=== PATIENT | female | born 1960 | race African-American/Black ===

== ENCOUNTER 2021-03-13 09:17 | Outpatient (CLI) | payer OTHER, SELFPAY ==
--- NOTE | ~2021-03-13 | CT_ITS ---
EXAMINATION: CT lung screening DATE: 03/13/2021 09:30 INDICATION: Z72.0 - Tobacco use TECHNIQUE: Computed tomography (CT) of the chest was performed without intravenous contrast. Addition al 3D reconstructions utilizing coronal maximum intensity projection (MIP) were performed. Automated exposure control and iterative reconstruction technique were employed. The dose-length product was 10 3.26 mGy-cm. COMPARISON: 10/08/2013 FINDINGS: Minimal emphysema at the apices of lungs. Cluster of small calcified nodules in the left upper lobe a long with calcified left hilar lymph nodes consistent with old granulomatous disease. No other suspic ious pulmonary nodules, pneumonia, pulmonary edema or pleural effusion. Heart size is normal. No jay cardial effusion. Aortic valve calcification. Thoracic aorta is normal in caliber. No pathologically enlarged thoracic lymphadenopathy. Visualized upper abdomen is unremarkable. Moderate lower cervical and mild thoracic spondylosis. IMPRESSION: 1. Lung-RADS category 1: Negative. Continue annual screening with noncontrast low-dose chest CT in 12 months. Reviewed, dictated and finalized at location B. T CARD CLERK IMPRESSION: 1. Lung-RADS category 1: Negative. Continue annual screening with noncontrast l ow-dose chest CT in 12 months.
== END 2021-03-13 09:18 | disposition home or self-care (01) ==
LOC: ANHIMG 09:19
PROVIDERS: PCP Internal Medicine; Visit Provider Nurse Practitioner
DX: Z12.2 Encounter for screening for malignant neoplasm of respiratory organs (principal); Z87.891 Personal history of nicotine dependence
CPT/HCPCS: 71271

== ENCOUNTER 2022-01-23 09:46 | Outpatient (CLI) | payer OTHER, SELFPAY ==
--- NOTE | ~2022-01-23 | DEXA_ITS ---
Bone Density Report Name: HANNAH DUENAS Age: 61 Sex: Female Ethnicity: White Date of : 1960 Indication: postmenopausal; screening for osteoporosis; height loss; rheumatoid arthritis; Referring Provider: ESTELA, YAIR Jordan Study: Bone densitometry was performed. Exam Date: January 23, 2022 Accession number: [id number] Bone Density: Region BMD T-score Z-score Classification AP Spine(L1-L4) 1.114 0.6 2.2 Normal Femoral Neck (Left) 0.912 0.6 2.0 Normal Total Hip (Left) 0.999 0.5 1.5 Normal Femoral Neck (Right) 0.878 0.3 1.6 Normal Total Hip (Right) 1.048 0.9 1.9 Normal Total Hip Mean 1.024 0.7 1.7 Normal World Health Organization criteria for BMD impression classify patients as: Normal (T-score at or above -1.0), Osteopenia (T-score between -1.0 and -2.5), or Osteoporosis (T-score at or below -2.5). 10-year Fracture Risk: FRAX not reported because: All T-scores for Spine Total, Hip Total, Femoral Neck at or above -1.0 Clinical Information Provided by Patient: Smokes Has rheumatoid arthritis Has used the following medications: Vitamin D, Calcium Patient maximum height was 65 Menopause Age: 44 No regular weight bearing exercise Drinks caffeinated beverages Onset of menses at age 13 Number of children 3 Impression: The patient has normal bone mass. The patient has risk factors, including: smoking. Discussion: BONE DENSITY IS ABOVE THE MINIMUM DESIRABLE LEVEL AT ALL SKELETAL SITES TESTED. This patient?s bone mineral density is above the minimum desirable level (T-score -1.0 or better) at all sites measured. The patient should follow a healthful lifestyle (good nutrition with adequate calcium and vitamin D, and appropriate weight-bearing exercise). Follow-Up: Consider repeating this study in 5 years or sooner if there is some new clinical indication. Reported by: TOMMY on 01/23/2022 10:07:00 AM. Reviewed, dictated and finalized at location AJob HOLT
--- NOTE | ~2022-01-23 | MM_ITS ---
EXAMINATION: MM screening dena BI w madisyn HISTORY: Screening TECHNIQUE: Craniocaudal and mediolateral oblique 3-D tomosynthesis images were obtained and synthetic 2-D images were generated. CAD analysis was submitted and interpreted. COMPARISON: Comparison to multiple prior studies sequentially, with oldest reviewed study dated 03/10. BREAST PARENCHYMAL COMPOSITION: Breast composed of scattered areas of fibroglandular density FINDINGS: There is no evidence of suspicious mass, calcification, or architectural distortion to sugg est malignancy in either breast. There has been no suspicious interval change. IMPRESSION: 1. No mammographic evidence of malignancy. 2. Recommend routine screening mammography in one year. BI-RADS Category 1: Negative Reviewed, dictated and finalized at location A.
== END 2022-01-23 09:47 | disposition home or self-care (01) ==
PROVIDERS: PCP Internal Medicine; Visit Provider Nurse Practitioner Obstetrics & Gynecology
DX: Z12.31 Encounter for screening mammogram for malignant neoplasm of breast (principal); Z78.0 Asymptomatic menopausal state
CPT/HCPCS: 77063; 77067; 77080

== ENCOUNTER 2022-09-27 12:31 | Outpatient (CLI) | payer OTHER, SELFPAY ==
--- NOTE | ~2022-09-27 | CT_ITS ---
CT Scan of the Chest without Contrast: Clinical Indication: Lung cancer screening, personal history of nicotine dependence Technique: Contiguous sections were acquired throughout the chest without intravenous contrast. Dose reduction technique was used on this scan by utilizing automated exposure control and iterative recon struction technique. The dose-length product (DLP) was 131.13 mGy-cm. COMPARISON: 03/13/2021 Findings: There is no evidence of any significant mediastinal, hilar or axillary lymphadenopathy. The mediastin al soft tissues appear normal. There is no evidence of pleural or pericardial effusion. The lungs are clear. No pulmonary nodules or infiltrates are noted. Images through the upper abdomen reveal no abnormalities. Impression: Lung RADS 1: Negative. 12 month follow-up screening CT advised. Reviewed, dictated and finalized at location . Impression: Lung RADS 1: Negative. 12 month follow-up screening CT advised.
[2022-09-27 14:10] LABS: Basophils Absolute Auto 0.1 K/mm3 (0.0-0.1); Basophils Percent Auto 0.4 % (0.2-1.2); Eosinophils Absolute Auto 0.4 K/mm3 (0-0.3); Eosinophils Percent Auto 3.1 % (0-4.4); Hematocrit 46.6 % (37.0-47.0); Hemoglobin 15.7 g/dL (12.0-15.0); Immature Granulocyte Absolute 0.04 K/mm3 (0.00-0.031); Immature Granulocyte Percent A 0.3 % (0-0.5); Lymphocytes Absolute Auto 3.35 K/mm3 (0.9-3.2); Lymphocytes Percent Auto 28.7 % (18.3-44.2); Mean Corpuscular HGB Conc 33.7 g/dl (32-36); Mean Corpuscular Hemoglobin 29.8 pg (26-34); Mean Corpuscular Volume 88.4 fl (80-100); Mean Platelet Volume 9.5 fl (7.4-10.4); Monocytes Absolute Auto 0.9 K/mm3 (0.1-0.6); Monocytes Percent Auto 7.4 % (2.6-8.5); Neutrophils Percent Auto 60.1 % (45.5-73.1); Platelet Count Result 220 k/mm3 (150-375); Red Blood Count 5.27 M/mm3 (4.2-5.4); Red Cell Distribution Width 14.4 % (11.5-14.5); White Blood Count 11.7 K/mm3 (4.5-10.0)
[2022-09-27 14:37] LABS: Parathyroid Intact 73.3 pg/mL (7.5-53.5)
== END 2022-09-27 12:32 | disposition home or self-care (01) ==
LOC: ANHIMG 12:32
PROVIDERS: PCP Internal Medicine; Visit Provider Nurse Practitioner
DX: Z12.2 Encounter for screening for malignant neoplasm of respiratory organs (principal); D72.829 Elevated white blood cell count, unspecified; E83.52 Hypercalcemia; F17.210 Nicotine dependence, cigarettes, uncomplicated
CPT/HCPCS: 36415; 71271; 83970; 85025; 93306

== ENCOUNTER 2022-09-27 12:33 | Outpatient (CLI) | payer OTHER, SELFPAY ==
--- NOTE | 2022-09-27 | ECHO_ITS ---
Patient Info Name: Kimberley Marie Age: 62 years : 1960 Gender: Female Ht: 65 in Wt: 172 lbs BSA: 1.91 m2 HR: 63 bpm BP: 135 / 65 mmHg Technical Quality: Good Exam Date: 09/27/2022 1:06 PM Exam Location: [facility] Patient Status: Outpatient Admit Date: 09/27/2022 Staff Ordering Physician: Rebecca Blount NP Frame Nailer: Charmaine Danielson RDCS Attending Provider: Rebecca Blount NP Referring Physician: Mine LEIVA; Exam Type: CA echo doppler color flow Study Info Indications R01.1 - Cardiac murmur, unspecified Complete two-dimensional, color flow and Doppler transthoracic echocardiogram is performed. Summary 1. Complete two-dimensional, color flow and Doppler transthoracic echocardiogram is performed. 2. Left ventricular chamber dimension is normal. 3. Left ventricular systolic function is normal, estimated at 60-65%. 4. The left ventricular diastolic function is grade I diastolic dysfunction. 5. E/e' 11 is mildly elevated. 6. Global longitudinal strain is normal at -17.5%. 7. Left atrial chamber dimension is moderately enlarged. 8. There is mild aortic valve sclerosis. 9. There is moderate aortic valve regurgitation. 10. There is trace mitral valve regurgitation. 11. There is trace tricuspid valve regurgitation. 12. No pulmonary hypertension, estimated pulmonary arterial systolic pressure is 27 mmHg. 13. There is trace pulmonic regurgitation. Left Ventricle E/e' 11 is mildly elevated. Global longitudinal strain is normal at -17.5%. Left ventricular chamber dimension is normal. Left ventricular systolic function is normal, estimated at 60-65%. The left ventricular diastolic function is grade I diastolic dysfunction. Right Ventricle Right ventricular systolic function is normal and with normal TAPSE 2.8 cm. Right ventricular chamber dimension is normal. Left Atria Left atrial chamber dimension is moderately enlarged. Right Atria Right atrial chamber dimension is normal. Aortic Valve The aortic valve is trileaflet. There is mild aortic valve sclerosis. There is no aortic valve stenosis. There is moderate aortic valve regurgitation. Pulmonic Valve There is trace pulmonic regurgitation. Mitral Valve There is no mitral valve stenosis. There is trace mitral valve regurgitation. Tricuspid Valve There is trace tricuspid valve regurgitation. No pulmonary hypertension, estimated pulmonary arterial systolic pressure is 27 mmHg. Pericardium/Pleural There is no pericardial effusion. Inferior Vena Cava Normal inferior vena cava with >50% collapse upon inspiration consistent with normal right atrial pressure, 5 mmHg. Aorta The aortic root size at the sinus of Valsalva is normal. Left Ventricular Outflow Tract Name Value Normal LVOT 2D LVOT Diameter 2.0 cm LVOT Doppler LVOT Peak Gradient 5 mmHg LVOT Mean Gradient 3 mmHg LVOT VTI 31 cm LVOT VTI/AV VTI Ratio 0.6 LVOT Stroke Volume 92 ml LVOT CO 5.1 l/min LVOT CI 2.6 l/min/m2 Pulmonic Valve
== END 2022-09-27 12:34 | disposition home or self-care (01) ==
LOC: ANHCARD 12:34
PROVIDERS: PCP Internal Medicine; Visit Provider Nurse Practitioner
DX: R01.1 Cardiac murmur, unspecified (principal); I35.1 Nonrheumatic aortic (valve) insufficiency
CPT/HCPCS: 93306

== ENCOUNTER 2023-05-16 09:55 | Outpatient (CLI) | payer OTHER, SELFPAY ==
--- NOTE | 2023-05-16 10:01 | EST_ITS ---
Patient Info Name: Kimberley Marie Age: 62 years : 1960 Gender: Female Ht: 65 in Wt: 165 lbs BSA: 1.87 m2 HR: 56 bpm BP: 111 / 63 mmHg Heart Rhythm: Sinus Rhythm Exam Date: 05/16/2023 10:13 AM Exam Location: [facility] Patient Status: Outpatient Admit Date: 05/16/2023 Staff Ordering Physician: Rebecca Blount NP Attending Provider: Rebecca Blount NP Exercise Technologist: Cyn Liao CT Exercise Physician: Rio Silvestre DO Exam Type: CA stress test treadmill Study Info Indications R06.09 - Other forms of dyspnea A treadmill exercise stress test was performed. Summary 1. 1. Negative Francis exercise stress test for ischemic ST changes by ECG criteria. 2. 2. Reduced functional capacity, achieving 7 METs of workload. 3. 3. Hypertensive response to exercise. 4. 4. Appropriate HR response to exercise. 5. 5. Appropriate HR recovery at 1 minute post exercise. 6. 6. No imaging with stress testing. 7. 7. Patient informed of the above results. Protocol: Francis Stress ECG Details Stage: REST Duration (min): 1 min : 14 sec Speed (mph): 0.0 Grade (%): 0 HR (bpm): 58 SBP (mmHg): 111 DBP (mmHg): 63 METS: --- Stage: REST Duration (min): 4 min : 52 sec Speed (mph): 0.0 Grade (%): 0 HR (bpm): 59 SBP (mmHg): 111 DBP (mmHg): 63 METS: --- Stage: STAGE 1 Duration (min): 1 min : 0 sec Speed (mph): 1.7 Grade (%): 10 HR (bpm): 95 SBP (mmHg): 111 DBP (mmHg): 63 METS: --- Stage: STAGE 1 Duration (min): 2 min : 0 sec Speed (mph): 1.7 Grade (%): 10 HR (bpm): 104 SBP (mmHg): 111 DBP (mmHg): 63 METS: --- Stage: STAGE 1 Duration (min): 3 min : 0 sec Speed (mph): 1.7 Grade (%): 10 HR (bpm): 105 SBP (mmHg): 198 DBP (mmHg): 89 METS: --- Stage: STAGE 2 Duration (min): 1 min : 0 sec Speed (mph): 2.5 Grade (%): 12 HR (bpm): 120 SBP (mmHg): 205 DBP (mmHg): 109 METS: --- Stage: STAGE 2 Duration (min): 2 min : 0 sec Speed (mph): 2.5 Grade (%): 12 HR (bpm): 132 SBP (mmHg): 213 DBP (mmHg): 108 METS: --- Stage: STAGE 2 Duration (min): 2 min : 3 sec Speed (mph): 2.5 Grade (%): 12 HR (bpm): 133 SBP (mmHg): 213 DBP (mmHg): 108 METS: --- Stage: RECOVERY Duration (min): 0 min : 56 sec Speed (mph): 0.0 Grade (%): 0 HR (bpm): 107 SBP (mmHg): 213 DBP (mmHg): 108 METS: --- Stage: RECOVERY Duration (min): 1 min : 56 sec Speed (mph): 0.0 Grade (%): 0 HR (bpm): 91 SBP (mmHg): 213 DBP (mmHg): 108 METS: --- Stage: RECOVERY Duration (min): 2 min : 56 sec Speed (mph): 0.0 Grade (%): 0 HR (bpm): 82 SBP (mmHg): 144 DBP (mmHg): 84 METS: --- Stage: RECOVERY Duration (min): 3 min : 12 sec Speed (mph): 0.0 Grade (%): 0 HR (bpm): 83 SBP (mmHg): 144 DBP (mmHg): 84 METS: --- Rest HR: 59 bpm Peak HR: 132 bpm Rest Sys BP: 111 mmHg Peak Sys BP: 213 mmHg Max Pred HR: 157 bpm % Max Pred HR: 84 %
== END 2023-05-16 09:56 | disposition home or self-care (01) ==
LOC: ANHCARD 09:55
PROVIDERS: PCP Internal Medicine; Visit Provider Nurse Practitioner
DX: R07.9 Chest pain, unspecified (principal); R06.00 Dyspnea, unspecified
CPT/HCPCS: 93017

== ENCOUNTER 2023-05-29 09:21 | Outpatient (CLI) | payer OTHER, SELFPAY ==
--- NOTE | 2023-05-29 13:59 | WPDPFTINT ---
PFT Procedure Performed PFT Procedure Performed Spirometry with Pre/Post Bronchodilator Plethysmography (Lung Vol) Diffusing Cap (DLCO) Flow Vol Loop PFT Interpretation Lung volumes were measured with the body plethysmography method. Lung volumes are unremarkable. Spirometry showed normal expiratory flow rates and a normal FEV1 to FVC ratio of 80%. Following administration of a bronchodilator there was no significant increased expiratory flow rates. Lung diffusion capacity is mildly reduced at 65% predicted. The flow volume loop is unremarkable. Impression: Spirometry, lung volumes within the normal range. Mild reduction in lung diffusion capacity
== END 2023-05-29 09:22 | disposition home or self-care (01) ==
LOC: ANHPFT 09:22
PROVIDERS: PCP Internal Medicine; Visit Provider Nurse Practitioner
DX: R06.00 Dyspnea, unspecified (principal)
CPT/HCPCS: 94060; 94726; 94729

== ENCOUNTER 2023-12-05 10:11 | Outpatient (CLI) | payer OTHER, SELFPAY ==
[2023-12-05 12:22] LABS: Basophils Absolute Auto 0.1 K/mm3 (0.0-0.1); Basophils Percent Auto 0.6 % (0.2-1.2); Eosinophils Absolute Auto 0.2 K/mm3 (0-0.3); Eosinophils Percent Auto 1.8 % (0-4.4); Hemoglobin 15.9 g/dL (12.0-15.0); Immature Granulocyte Absolute 0.04 K/mm3 (0.00-0.031); Immature Granulocyte Percent A 0.4 % (0-0.5); Lymphocytes Absolute Auto 3.05 K/mm3 (0.9-3.2); Mean Corpuscular HGB Conc 32.4 g/dl (32-36); Mean Corpuscular Hemoglobin 29.6 pg (26-34); Mean Corpuscular Volume 91.2 fl (80-100); Mean Platelet Volume 10.4 fl (7.4-10.4); Monocytes Absolute Auto 0.9 K/mm3 (0.1-0.6); Monocytes Percent Auto 8.2 % (2.6-8.5); Neutrophils Absolute Auto 6.3 K/mm3 (1.3-6.7); Platelet Count Result 242 k/mm3 (150-375); Red Blood Count 5.37 M/mm3 (4.2-5.4); Red Cell Distribution Width 14.9 % (11.5-14.5); White Blood Count 10.5 K/mm3 (4.5-10.0)
[2023-12-05 12:29] LABS: Add Urine Microscopic? YES; Appearance Urine Clear (Clear); Bacteria Urine None Seen /hpf; Bilirubin Urine Negative (Negative); Blood Urine Trace (Negative); Color Urine Yellow (Yellow); Glucose Urine UA Negative (Negative); Ketones Urine Negative (Negative); Leukocyte Esterase Ur Negative LEU/UL (Negative); Nitrate Urine Negative (Negative); Non Pathogenic Casts 0-2; Protein Urine Negative (Negative); RBC Urine 0-2 /hpf (0-2); Specific Grav Ur 1.013 (1.001-1.035); Squamous Epithelial Cell Urine None Seen /hpf (Few); Urobilinogen Urine 0.2 mg/dL (<2.0); WBC Urine 0-5 /hpf (0-3)
[2023-12-05 12:44] LABS: Alanine Aminotransferase 18 U/L (6-35); Albumin Level 4.7 g/dL (3.5-5.1); Alkaline Phosphatase 68 U/L (38-126); Anion Gap 10 mmol/L (4-12); Aspartate Amino Transferase 36 U/L (14-36); Bilirubin,Total 0.4 mg/dL (0.2-1.3); Blood Urea Nitrogen 17 mg/dL (7-17); Calcium 10.2 mg/dL (8.4-10.2); Carbon Dioxide 26 mmol/L (22-30); Chloride 105 mmol/L (98-107); Cholesterol 173 mg/dL (0-200); Estimated Glomerular Filt Rate > 60; Glucose 99 mg/dL (65-110); HDL Direct 58 mg/dL; Potassium 3.8 mmol/L (3.4-5.0); Sodium 141 mmol/L (137-145); Triglycerides 197 mg/dL (<150)
[2023-12-05 12:54] LABS: Parathyroid Intact 46.4 pg/mL (14.5-75.2)
[2023-12-05 12:55] LABS: LDL Cholesterol Direct 88 mg/dL
[2023-12-06 16:03] LABS: Ionized Calcium 5.5 mg/dL (4.7-5.5)
[2023-12-14 15:33] LABS: Apolipoprotein B 95 mg/dL
== END 2023-12-05 10:12 | disposition home or self-care (01) ==
LOC: ANHGOSHLAB 10:12
PROVIDERS: PCP Internal Medicine; Visit Provider Nurse Practitioner
DX: E83.52 Hypercalcemia (principal); R35.0 Frequency of micturition; I10 Essential (primary) hypertension
CPT/HCPCS: 36415; 80053; 80061; 81001; 82172; 82330; 83970; 84443; 85025

== ENCOUNTER 2025-03-26 08:26 | Outpatient (CLI) | payer MEDICARE, MEDICAID, SELFPAY ==
--- OUTSIDE RECORDS SUMMARY | 2025-03-26 08:36 | XMS_ITS | Clinical Summary ---
Author Organization [facility] Address [address] [place] [id number] Care Team Providers Care Employment Officer Name Role Phone Unknown, Notinfile Primary Care Provider Unavail able Allergies No known active allergies Medications albuterol HFA (PROVENTIL HFA,VENTOLIN HFA,PROAIR HFA) 90 mcg/actuation inhaler Inhale 2 puffs every 6 (six) hours as needed for wheezing Active fluticasone propionate (FLONASE) 50 mcg/actuation nasal spray Administer 2 sprays into each nostril daily Active lisinopril-hydr oCHLOROthiazide (ZESTORETIC) 20-12.5 mg per tabletIndicatio ns:hypertension Take 1 tablet by mouth daily Active Active Problems Problem Noted Date Diagnosed Date Primary hypertension 01/11/2021 Tobacco dependence due to cigarettes 01/11/2021 Other emphysema 01/11/2021 Rhabdomyolysis 01/10/2021 Surgical History Surgery Date Site/Laterality Comments TUBAL LIGATION 04/08/1980 - 04/07/1981 Bilateral VAGINAL DELIVERY x 3 Medical History Medical History Date Comments HTN (hypertension) COPD (chronic obstructive pulmonary disease) Tobacco dependence due to cigarettes 01/11/2021 Family History Medical History Relation Name Comments Diabetes Father Hypertension Father Diabetes Mother Hypertension Mother Relation Name Status Comments Father (Age 60s) Mother (Age 58) Social History Tobacco Use Types Packs/Day Years Used Date Smoking Tobacco: Every Day Cigarettes 0.5 47 Started: 1979 Smokeless Tobacco: Never Tobacco Cessation:Counseling Given: Yes Humiliation, Afraid, Rape, and Kick questionnair e Answer Date Recorded Within the last year, have y ou been afraid of your partner or ex-partner? No 01/11/2021 Within the last year, have y ou been humiliated or emotionally abused in other ways by your partner or ex-partner? No Within the last year, have y ou been kicked, hit, slapped, or otherwise physically hurt by your partner or ex-partner? No 01/11/2021 Within the last year, have y ou been raped or forced to have any kind of sexual activity by your partner or ex-partner? No 01/11/2021 Social Connection and Isolation Panel Answer Date Recorded In a typical week, how many times do you talk on the phone with family, friends, or neighbors? More than three times a week 01/11/2021 How often do you get togethe r with friends or relatives? Twice a week 01/11/2021 How often do you attend chur or sabianist services? More than 4 times per year 01/11/2021 Do you belong to any clubs o r organizations such as cheondoism groups, unions, fraternal or athletic groups, or school groups? Yes 01/11/2021 How often do you attend meet ings of the clubs or organizations you belong to? More than 4 times per year 01/11/2021 Are you , , di vorced, , never , or living with a partner? 01/11/2021 AUDIT-C Answer Date Recorded Q1: How often do you have a drink containing alc ohol? 2-4 times a month 01/11/2021 Q2: How many drinks containi ng alcohol do you have on a typical day when you are drinking? 3 or 4 01/11/2021 Q3: How often do you have si x or more drinks on one occasion? Less than monthly 01/11/2021 [facility] - Occupational Stress Questionnaire Answer Date Recorded Do you feel stress - tense, restless, nervous, or anxious, or unable to sleep at night because your mind is troubled all the time - these days? Not at all 01/11/2021 Hunger Vital Sign Answer Date Recorded Within the past 12 months, y ou worried that your food would run out before you got the money to buy more. Never true 01/12/20 21 Within the past 12 months, t he food you bought just didn't last and you didn't have money to get more. Never true 01/11/2021 Housing Stability Vital Sign Answer Paco e Recorded In the last 12 months, was t here a time when you were not able to pay the mortgage or rent on time? No 01/11/2021 In the last 12 months, how many places have you lived? 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 Not on file Not on file Last Filed Vital Signs Vital Sign Reading Time Taken Comments Blood Pressure 164/75 01/11/2021 7:32 AM CDT Pulse 76 01/11/2021 7:32 AM CDT Temperature 36.9 C (98.4 F) 01/11/2021 7:32 AM CDT Respiratory Rate 21 01/11/2021 7:32 AM CDT Oxygen Saturation 96% 01/11/2021 7:32 AM CDT Inhaled Oxygen Concentration - - Weight 79 kg (174 lb 1.6 oz) 01/11/2021 5:19 AM CDT Height 162.6 cm (5' 4) 01/10/2021 9:47 PM CDT Body Mass Index 29.88 01/10/2021 9:47 PM CDT Plan of Treatment Not on file Insurance Advance Directives For more information, please contact: [phone] * Full Code (Latest Code Status on File) Date Activated Date Inactivated Comments 01/11/2021 1:37 AM 01/11/2021 4:08 PM Care Teams Employment Officer Relationship Specialty Start Date End Date Unknown, Notinfile PCP - General 01/10/21
--- OUTSIDE RECORDS SUMMARY | 2025-03-26 08:36 | XMS_ITS | Clinical Summary ---
Author Organization [facility] Address [address] [place] [address] Care Team Providers Care Bessemer Bottom Maker Name Role Phone Cordell Cuevas DO Primary Care Provider [phone] Source Comments [facility],non-owned Affiliates and Associated Physician Practices is amultiple site organization consisting of ambulatory clinics and hospital sitesin [place], [place], [place] and [place]. This disclosure is being madepursuant to the Care Everywhere program and may not contain all information available regarding this patient. Last updated 17.[facility] Allergies No known active allergies Medications * Be aware that medications may not be up to date on this document. Alwaysverify current medications with the patient. albuterol HFA (PROVENTIL; VENTOLIN; PROAIR) 108 (90 Base) MCG/ACT inhaler ProAir HFA 90 mcg/actuation aerosol inhaler Active lisinopril-hydr oCHLOROthiazide (PRINZIDE; ZESTORETIC) 20-12.5 MG tablet lisinopril 20 mg-hydrochloroth iazide 12.5 mg tablet Active fluticasone propionate (FLONASE) 50 MCG/ACT nasal spray fluticasone propionate 50 mcg/actuation nasal spray,suspension Active Active Problems Problem Noted Date Diagnosed Date Anti-WATER SAFETY INSTRUCTOR antibodies present 06/07/2021 Non-traumatic rhabdomyolysis 06/07/2021 Polyarthralgia 06/07/2021 Myofascial pain syndrome 06/07/2021 Primary osteoarthritis involving multiple joints 06/07/2021 Social History Tobacco Use Types Packs/Day Years Used Date Smoking Tobacco: Some Days Smokeless Tobacco: Never Alcohol Use Standard Drinks/Week Comments Yes 2 (1 standard drink = 0.6 oz pur e alcohol) PHQ-2 Answer Date Recorded PHQ2 TOTAL SCORE 0 07/31/2021 Comments Unknown Sex and Gender Information Value Date Recorded Sex Assigned at Not on file Legal Sex Female 6:26 AM CUPOLA TENDER HELPER Gender Identity Not on file Sexual Orientation Not on file Last Filed Vital Signs Vital Sign Reading Time Taken Comments Blood Pressure 138/80 07/31/2021 11:13 AM CDT Pulse - - Temperature 36.4 C (97.5 F) 07/31/2021 11:13 AM CDT Respiratory Rate - - Oxygen Saturation - - Inhaled Oxygen Concentration - - Weight 79.6 kg (175 lb 6.4 oz) 07/31/2021 11:13 AM CDT Height 167.6 cm (5' 6) 07/31/2021 11:13 AM CDT Body Mass Index 28.31 07/31/2021 11:13 AM CDT Plan of Treatment Health Maintenance Due Date Last Done Comments BONE DENSITY TESTING 1960 COLOGUARD (AGES 45-75) - COL ON CA SCREENING 1960 COLON MONITORING 1960 COLONOSCOPY - COLON CA SCREENING 1960 CT COLONOGRAPHY - COLON CA SCREENING 1960 Colorectal Cancer Screening 1960 FIT - COLON CA SCREENING 1960 FLEX SIG - COLON CA SCREENING 1960 LIPID TESTING 1960 MAMMOGRAM 1960 HIV SCREENING 08/29/1974 HEPATITIS C SCREENING 08/25/1977 DTAP/TDAP/TD VACCINES (1 - Tdap) 08/29/1978 PNEUMOCOCCAL VACCINE 50+ (1 of 1 - PCV) 08/29/2009 ZOSTER VACCINE (1 of 2) 08/29/2009 DEPRESSION SCREENING 04/08/2024 SCREENING FOR DIABETES 06/07/2024 06/07/2021 COVID-19 VACCINE (1 - 2024-2 6 season) 2024 INFLUENZA VACCINE (#1) 2024 Respiratory Syncytial Virus (RSV) Vaccine Pt: or over 60 yrs (1 - 1-dose 75+ series) 08/29/2034 HEPATITIS B VACCINE Aged Out No longe r eligible based on patient's age to complete this topic HIB VACCINE Aged Out No longer eligi ble based on patient's age to complete this topic HPV VACCINE Aged Out No longer eligi ble based on patient's age to complete this topic MENINGOCOCCAL (Group B) VACC INE SHARED DECISION-MAKING Aged Out No longer eligibl e based on patient's age to complete this topic MENINGOCOCCAL GROUPS A/C/Y/W VACCINE Aged Out No longer eligible b ased on patient's age to complete this topic Procedures Procedure Name Priority Date/Time Associated Diagnosis Comments COMPREHENSIVE METABOLIC PANEL Routine 06/07/2021 12:37 PM CUPOLA TENDER HELPER Anti-WATER SAFETY INSTRUCTOR antibodies present Polyarthralgia Non-traumatic rhabdomyolysis from Last 3 Months or Most Recently Relevant to Health Maintenance Results * (ABNORMAL) COMPREHENSIVE METABOLIC PANEL (06/07/2021 12:37 PM CUPOLA TENDER HELPER) BUN 16 7 - 26 mg/dL 06/07/2021 1:36 PM [facility] Creatinine 0.56 0.56 - 0.96 mg/dL 06/07/2021 1:36 PM [facility] Sodium 141 136 - 145 mmol/L 06/07/2021 1:36 PM [facility] Potassium 3.5 3.5 - 4.5 mmol/L 06/07/2021 1:36 PM [facility] Chloride 108(H) 98 - 107 mmol/L 06/07/2021 1:36 PM [facility] CO2 23 22 - 29 mmol/L 06/07/2021 1:36 PM [facility] Glucose 88 70 - 115 mg/dL 06/07/2021 1:36 PM [facility] Calcium 10.0 8.4 - 10.2 mg/dL 06/07/2021 1:36 PM [facility] Protein Total 7.7 6.0 - 8.3 g/dL 06/07/2021 1:36 PM [facility] Albumin 4.5 3.4 - 5.0 g/dL 06/07/2021 1:36 PM [facility] Bilirubin Total 0.5 0.2 - 1.2 mg/dL 06/07/2021 1:36 PM [facility] Alkaline Phosphatase 81 40 - 150 U/L 06/07/2021 1:36 PM [facility] ALT 16 5 - 55 U/L 06/07/2021 1:36 PM [facility] AST 14 5 - 34 U/L 06/07/2021 1:36 PM [facility] Anion Gap 14 8 - 18 06/07/2021 1:36 PM [facility] BUN/Creatinine Ratio 29(H) 7 - 23 06/07/2021 1:36 PM [facility] Osmolality Calculated 293 270 - 300 mOsm/kg 06/07/2021 1:36 PM [facility] Albumin/Globulin Ratio 1.4 1.1 - 2.3 06/07/2021 1:36 PM [facility] eGFR by CKD-EPI >90 >=90 mL/min/1.7 3 m2 06/07/2021 1:36 PM [facility] Blood BLOOD SPECIMEN / Unknown Lab Venipuncture / Unknown 06/07/2021 12:37 PM [facility] 06/07/2021 1:06 PM [facility] Jimbo Wharton MD LAB - CHEMISTRY ORDERABLES Final Result [facility] [address] [place] [address], [facility] [phone] from Last 3 Months or Most Recently Relevant to Health Maintenance Insurance [facility] Care Teams Bessemer Bottom Maker Relationship Specialty Start Date End Date Cordell Cuevas DO PCP - General 03/01/21
--- OUTSIDE RECORDS SUMMARY | 2025-03-26 08:36 | XMS_ITS | Clinical Summary ---
Author Organization [facility] Address [address] [place] [address] Care Team Providers Care Apprentice Embalmer Name Role Phone Cordell Cuevas DO Primary Care Provider Allergies No known active allergies Medications lisinopril-hydro CHLOROthiazide (ZESTORETIC) 20-12.5 mg tablet TK 1 T PO QD 0 04/03/2018 Active naproxen (NAPROSYN) 500 mg tablet Take 500 mg by mouth 2 times daily with meals. Active ergocalciferol, vitamin D2, (VITAMIN D ORAL) Take by mouth. Active buPROPion HCl (WELLBUTRIN SR) 150 mg Sustained Release 12 hour tablet Take 1 Tablet (150 mg) by mouth 2 times daily. 60 Tablet 1 10/21/2018 Active Active Problems Problem Noted Date Diagnosed Date Hypercalcemia 05/06/2018 Leukocytosis (leucocytosis) 04/22/2018 Family History Medical History Relation Name Comments Cancer Brother 1 Stomach Cancer Brother 1 Cancer Brother 2 Esophageal Cancer Brother 2 Cancer Brother 3 Esophageal Cancer Brother 3 Sickle Cell Anemia Brother 5 Diabetes Father Diabetes Mother Heart Surgery Mother Diabetes Sister 1 Stroke Sister 1 Stroke Sister 2 Relation Name Status Comments Brother 1 Brother 2 Brother 3 Brother 4 Brother 5 Brother 6 Alive Father Mother Sister 1 Alive Sister 2 Alive Social History Tobacco Use Types Packs/Day Years Used Date Smoking Tobacco: Every Day Cigarettes 0.5 27 Smokeless Tobacco: Never Alcohol Use Standard Drinks/Week Comments Yes 0 (1 standard drink = 0.6 oz pur e alcohol) occassional drinker Comments No Sex and Gender Information Value Date Recorded Sex Assigned at Not on file 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 Gender Identity Not on file Sexual Orientation Not on file Last Filed Vital Signs Vital Sign Reading Time Taken Comments Blood Pressure 132/57 10/21/2018 10:38 AM CDT Pulse 60 10/21/2018 10:38 AM CDT Temperature 36.7 C (98.1 F) 10/21/2018 10:38 AM CDT Respiratory Rate 16 10/21/2018 10:38 AM CDT Oxygen Saturation 96% 05/15/2018 10:52 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 Inhaled Oxygen Concentration - - Weight 82.2 kg (181 lb 3.2 oz) 10/21/2018 10:38 AM CDT Height 166.4 cm (5' 5.5) 10/21/2018 10:38 AM CD T Body Mass Index 29.69 10/21/2018 10:38 AM CDT Plan of Treatment Health Maintenance Due Date Last Done Comments DTAP/TDAP/TD VACCINES (1 - Tdap) 08/29/1978 PNEUMOCOCCAL VACCINE 50+ YEARS (1 of 2 - PCV) 08/29/18 79 BREAST CANCER SCREENING 1999 COLORECTAL SCREENING 08/29/2004 Colorectal Cancer Screening 08/29/2004 FIT-DNA Q 3 years 08/29/2004 FIT/FOBT Q 1 year 08/29/2004 Flex Sig/CT Colonography Q 5 years 08/29/2004 ZOSTER VACCINE (1 of 2) 08/29/2009 OSTEOPOROSIS SCREENING 08/29/2024 INFLUENZA VACCINE (#1) 2024 RSV VACCINE (60+ or ) (1 - 1-dose 75+ series) 08/29/2034 Insurance PLAN MEDICAID Care Teams Apprentice Embalmer Relationship Specialty Start Date End Date Cordell Cuevas DO [address] [id number] PCP - General Internal Medicine 03/28/18
--- OUTSIDE RECORDS SUMMARY | 2025-03-26 08:36 | XMS_ITS | Data Portability ---
Author Organization [facility] [place] Address [address] [place] [address] Care Team Providers Care Alarm Signal Operator Name Role Phone JONNIE ABBOTT Primary Care Provider Assessment Encounter Date Assessment Date Assessment LastModified by Organization Details LastModified Time 08/25/2021 08/25/2021 Annual gynecological exam performed. Patient will come back in a year unless there are new symptoms. Not available 08/25/2021 12:31:07 10/11/2022 10/11/2022 Annual gynecological exam performed. Patient will come back in a year unless there are new symptoms. Not available 10/11/2022 11:00:59 05/11/2024 05/11/2024 Annual gynecological exam performed. Patient will come back in a year unless there are new symptoms. [email or web address] Not available 05/11/2024 11:20:04 Plan of Treatment Reminders Order Date Submit Date Provider Last Modified By Organization Details Last Modified Time Details Appointments None recorded. Lab hbcab (hepatitis B core Ab) igm, serum 2024 025 [facility] (Lab), [address], [place], [address], 5 05:01:54 HBsAg (hepatitis B surface Ag), serum 2024 025 [facility] (Lab), [address], [place], [address], 5 05:01:53 hepatitis C virus Ab, serum 2024 025 [facility] (Lab), [address], [place], [address], 5 05:01:54 HIV 1+2 AB + HIV 1 p24 Ag, qualitative immunoassay , serum 2024 025 [facility] (Lab), [address], [place], [address], 5 05:01:53 RPR (rapid plasma reagin), serum 2024 025 [facility] (Lab), [address] [place], [address], 5 05:01:54 hbcab (hepatitis B core Ab) igm, serum 2021 022 [facility] (Lab), [address] [place], [address], 2 20:42:06 HBsAg (hepatitis B surface Ag), serum 2021 022 [facility] (Lab), [address] [place], [address], 2 20:42:05 hepatitis C virus Ab, serum 2021 022 [facility] (Lab), [address] [place], [address], 2 20:42:05 unlisted lab - HIV 1/2 antigen/ant ibody, reflex confirmatio n 2021 022 [facility] (Lab), [address] [place], [address], 2 20:42:05 RPR (rapid plasma reagin), serum 2021 022 [facility] (Lab), [address], [place], [address], 20:42:06 Referral None recorded. Procedures None recorded. Surgeries None recorded. Imaging MAMMO, diagnostic, digital, bilateral - left breast lump in upper outer quadrant 2024 025 [facility] ([facility]), [address], [place], [address], 5 05:00:55 US, breast, unilateral 2024 025 [facility] ([facility]), [address], [place], [address], 5 05:00:55 MAMMO, screening, bilateral 2022 023 Not available 3 12:11:29 DEXA, axial skeleton + vertebral fracture assessment [address] [facility], [address], [facility] [address], [place], [address], 2 14:15:47 Medication Orders None recorded. Patient TargetsNo targets recorded. Patient InstructionsNo instructions recorded. Reason for Referral None Reported. Results Created Date Observation Date Name Description Value Unit Range Abnormal Flag Note LastModifiedBy Organization Detail LastModifiedTime 08/26/19 22 08/25/2021 HEPAT ITIS B SURFA CE ANTIG EN hepatitis B surface antigen Non-re active non-re active This assay was perfo rmed using [employer] n reage nts and test kits. Value s obtai jenelle with other assay metho ds or kits canno t be used inter ruiz eably . Not Available [facility] (Lab) [address], [place], [address], 08/28/2021 20:42:04 08/26/19 22 08/25/2021 HEPAT ITIS C ANTIB FREDDIE SCREE N, REFLE X TO CONFI RMATI ON hepatitis C antibody Non-re active non-re active This assay was perfo rmed using [employer] reage nts and test kits. Value s obtai jenelle with other assay metho ds or kits canno t be used inter ruiz eably . Not Available [facility] (Lab) [address], [place], [address], 08/28/2021 20:42:05 08/26/19 22 08/25/2021 HIV 1/2 ANTIG EN/AN TIBOD Y, REFLE X CONFI RMATI ON HIV Ag-Ab total quant 0.12 idx <1.00 Not Available [facility] (Lab) [address], [place], [address], 08/28/2021 20:42:05 08/26/19 22 08/25/2021 HIV 1/2 ANTIG EN/AN TIBOD Y, REFLE X CONFI RMATI ON HIV Ag-Ab total Non-re active non-re active Not Available [facility] (Lab) [address] [place], [address], 08/28/2021 20:42:05 08/26/19 22 08/25/2021 HIV 1/2 ANTIG EN/AN TIBOD Y, REFLE X CONFI RMATI ON HIV-1 antibody quant 0.06 idx <1.00 Not Available [facility] (Lab) [address] [place], [address], 08/28/2021 20:42:05 08/26/19 22 08/25/2021 HIV 1/2 ANTIG EN/AN TIBOD Y, REFLE X CONFI RMATI ON HIV-1 antibody Non-re active non-re active Not Available [facility] (Lab) [address] [place], [address], 08/28/2021 20:42:05 08/26/19 22 08/25/2021 HIV 1/2 ANTIG EN/AN TIBOD Y, REFLE X CONFI RMATI ON HIV-1 antigen (P24) quant 0.12 idx <1.00 Not Available [facility] (Lab) [address], [place], [address], 08/28/2021 20:42:05 08/26/19 22 08/25/2021 HIV 1/2 ANTIG EN/AN TIBOD Y, REFLE X CONFI RMATI ON HIV-1 antigen (P24) Non-re active non-re active Not Available [facility] (Lab) [address] [place], [address], 08/28/2021 20:42:05 08/26/19 22 08/25/2021 HIV 1/2 ANTIG EN/AN TIBOD Y, REFLE X CONFI RMATI ON HIV-2 antibody quant 0.07 idx <1.00 Not Available [facility] (Lab) [address] [place], [address], 08/28/2021 20:42:05 08/26/19 22 08/25/2021 HIV 1/2 ANTIG EN/AN TIBOD Y, REFLE X CONFI RMATI ON HIV-2 antibody Non-re active non-re active HIV testi ng is perfo rmed using [employer] oassa y techn ology . The final overa ll HIV Ag-Ab resul t is deter mined based on the final resul t for each indiv idual scotty te. If any of the scotty hero has 2 or more repli cates that are REACT LEILA, the final overa ll HIV Ag-Ab resul t is also React leila. A Non-R eacti ve test resul t at any point in the inves tigat ion of indiv idual subje cts does not precl ude the possi bilit y of expos ure to or infec tion with HIV-1 and/o r HIV-2 . Non-R eacti ve resul ts can occur if the quant ity of marke r prese nt in the sampl e is below the detec tion limit s of the assay . React leila speci mens must be inves tigat ed by addit ional , more speci fic suppl ement al tests . Speci men confi rmati on will be perfo rmed by the [employer] us HIV 1/2 Suppl ement al Assay . The perfo rmanc e of this assay has not been estab lishe d for neona hero and the assay shoul d not be used in indiv idual s young er than 2 years of age. Not Available [facility] (Lab) [address], [place], [address], 08/28/2021 20:42:05 08/26/19 22 08/25/2021 RPR SCREE N/REF ALBERTO TITER /FTA RPR screen Nonrea ctive nonrea ctive Not Available [facility] (Lab) [address] [place], [address], 08/28/2021 20:42:06 08/26/19 22 08/25/2021 HEPAT ITIS B CORE, IGM hepatitis B core IgM antibody Negati ve negati ve Not Available [facility] (Lab) [address] [place], [address], 08/28/2021 20:42:06 08/26/19 22 08/25/2021 IMAGE GUIDE D PAP AND HPV REGAR DLESS image guided Pap, HPV regardless of Pap result SEE RESULT S BELOW CASE REPOR T: Cytol ogy Gynec ologi obed Repor t Case: [id number] Autho fabrizio g Provi amando: Finn Perkins Colle cted: 08/25 1246 SHIP ERECTOR Order ing Locat ion: [place] [facility] Recei valencia: 08/28 0813 First Scree n: McBri de, Nell ret, CT Speci men: Scree roseann Pap - Image d, Cervi x STATE MENT OF ADEQU ACY: Satis facto ry for evalu ation Trans forma tion zone compo nent canno t be defin itive ly ident ified due to the prese nce of atrop hy or other hormo nal ruiz es FINAL DIAGN OSIS: Negat leila for Intra epith elial Lesio n or Oleksandr mccollum (NIL) . Atrop hic cell patte rn. Frandy roberts adri d by Nell Carrizales ret, CT on 2021 at 12:24 PM ----- ----- ----- ----- ----- ----- ----- ----- ----- ----- ----- ----- ----- ----- ----- ----- ----- ---- HPV RESUL TS: HPV mRNA E6/E7 : No HPV mRNA Detec jennifer NOTE: This high risk HPV mRNA assay detec ts fourt een high- risk HPV types (16, 18, 31, 33, 35, 39, 45, 51, 52, 56, 58, 59, 66, 68) witho ut diffe renti ation . COMME NT: Note: This speci men was revie wed by a Cytot echno logis t and/o r Patho logis t (as indic ated in this repor t) after evalu ation using the Thinp rep Imagi ng Syste m. CLINI OBED INFOR MATIO N: Menst rual Statu s: LMP (if appli cable ): Clini obed Histo ry/Pr eviou s Pap: Type of Neopl cristhian (if appli cable ): Signi fican t Clini obed Findi ngs: Other Histo ry: Hormo lincoln (if appli cable ): PAP EDUCA ANKIT L NOTE: The Pap Test is a scree roseann test with an inher ent false negat leila rate. Liqui d-bas ed sampl ing may decre ase, but will not elimi lesvia, false negat leila resul ts. A negat leila resul t does not precl ude the prese nce and/o r devel opmen t of disea se, since the prese nce of abnor mal cells in the sampl e depen ds on the locat ion of the lesio n and sampl ing techn ique. Christine nued regul ar scree roseann is the best metho d of cance r preve ntion . If repor jennifer cytol ogic findi ng do not corre late with physi obed and/o r histo rical findi ngs, furth er inves tigat ion is recom shemar d, as sangi lyric bah nted. Not Available [facility] (Lab) [address], [place], [address], 08/31/2021 13:27:06 08/26/19 22 08/25/2021 CT/GC (LESLIE) , THINP REP VIAL chlamydia trachomatis, PCR Negati ve negati ve Not Available [facility] (Lab) [address], [place], [address], 08/31/2021 13:27:08 08/26/19 22 08/25/2021 CT/GC (LESLIE) , THINP REP VIAL neisseria gonorrhoeae, PCR Negati ve negati ve Not Available [facility] (Lab) [address], [place], [address], 08/31/2021 13:27:08 08/26/19 22 08/25/2021 TRICH OMONA S VAGIN CLAUDIA (RRNA ) trichomonas vaginalis ribosomal RNA (rrna) Negati ve negati ve Not Available [facility] (Lab) [address], [place], [address], 08/31/2021 13:27:08 01/24/20 22 01/23/2022 MAMMO , scree roseann, bilat eral No observ ation record ed. [email or web address] [facility] [address], [place], [address], 01/31/2022 21:04:02 12/18/19 23 10/05/2022 MAMMO , scree roseann, bilat eral No observ ation record ed. [email or web address] [facility] [address] [place], [address], 12/25/2022 12:47:32 03/19/20 23 02/25/2023 MAMMO , diagn ostic , digit al, unila teral No observ ation record ed. [email or web address] [facility] [address] [place], [address], 04/09/2023 11:43:14 08/29/19 24 08/29/2023 MAMMO , diagn ostic , tomos ynthe sis, unila teral No observ ation record ed. [email or web address] [facility] [address], [place], [address], 07/14/2024 17:07:08 Result Notes None recorded. Problems Name Problem SNOMED Code Status Onset Date Resolution Date Notes Provider Name and Address Organization Details Recorded Time Vaginiti s and vulvovag initis Completed 201408/24/2021 Vaginitis ;Recorded Elsewhere : No Locati on: [facility] So urce: EHR Chron ic: N Practic e ID: [id number] Bill able Time: 09:00:00 AM Nadira Hernandez [facility] 2 17:43:01 Microsco pic hematuri a [id number] Completed 201408/24/2021 HEMATURIA MICROSCOP IC;Practi ce ID: [id number] Nadira Hernandez [facility] 2 17:43:01 Female genital organ symptoms [id number] Completed 201408/24/2021 Pelvic Pain;Prac bessy ID: [id number] Nadira Hernandez [facility] 2 17:43:01 Uterine leiomyom a [id number] Completed 201408/24/2021 Leiomyoma of uterus, unspecifi ed;Practi ce ID: [id number] Nadira Hernandez [facility] 2 17:43:01 Screenin g for malignan t neoplasm of rectum Completed 201508/24/2021 Encounter for screening for malignant neoplasm of rectum;Re corded Elsewhere : No Locati on: [facility] So urce: EHR Chron ic: N Practic e ID: [id number] Bill able Time: 08:30:00 AM Nadira Hernandez [facility] 2 17:43:[address] Concept Completed 201508/24/2021 Encntr for polymerization helper exam (general) (routine) w/o abn findings; Practice ID: [id number] Nadira vazquez [facility] 2 17:43:01 Body mass index 25-29 - overweig ht [id number] Completed 201508/24/2021 Body mass index (BMI) 28.0-28.9 , adult;Rec orded Elsewhere : No Locati on: [facility] So urce: EHR Chron ic: N Practic e ID: [id number] Bill able Time: 08:30:00 AM Nadira vazquez [facility] 2 17:43:[address] Concept Completed 201608/24/2021 Encntr for general adult medical exam w/o abnormal findings; Recorded Elsewhere : No Locati on: [facility] So urce: EHR Chron ic: N Practic e ID: [id number] Bill able Time: 11:30:00 AM Nadira vazquez [facility] 2 17:43:01 Syphilis test finding [id number] Completed 201708/24/2021 Encounter for STD screening ;Recorded Elsewhere : No Locati on: [facility] So urce: EHR Chron ic: N Practic e ID: [id number] Bill able Time: 09:30:00 AM Nadira Hernandez [facility] 2 17:43:01 Evaluati on finding Completed 201808/24/2021 Hematuria , unspecifi ed;Record ed Elsewhere : No Locati on: [facility] So urce: EHR Chron ic: N Practic e ID: [id number] Bill able Time: 10:15:00 AM Nadira vazquez [facility] 2 17:43:01 Problem Notes None recorded. Procedures Surgical History Date Name Laterality Status Provider Name and Address Organization Details Recorded Time 2 Date of Last Pap Smear completed Alia Iraheta [facility] 10/11/2022 11:01:53 ligation of fallopian tube completed Bren Burns JARED [address], [place], [address], [facility] 05/11/2024 11:43:29 Imaging Results None recorded. Procedure Notes None recorded. Medical Equipment None Reported. Allergies No known drug allergies Medications Name Sig Start Date Stop Date Status Note LastModified by Organization Details LastModified Time lisinopri l 20 mg-hydroc hlorothia zide 12.5 mg tablet TAKE 1 TABLET BY MOUTH DAILY active Not Available Not Available No t Available azithromy jesu 250 mg tablet TAKE 2 TABLETS BY MOUTH FOR 1 DAY THEN TAKE 1 TABLET BY MOUTH DAILY FOR 4 DAYS 10/11 completed Not Available Not Available Not Available prednison e 20 mg tablet TAKE 2 TABLETS BY MOUTH DAILY FOR 5 DAYS 10/11 completed Not Available Not Available Not Available Diflucan 150 mg tablet take 1 tablet by oral route once 07/18 completed Prescrib ed Elsewher e: No Locat ion: [facility] M odify By: cindy Lovelace ncounter DateTime : 07/31/19 15 03:41:32 PM Not Available Not Available Not Available Advair Diskus 100 mcg-50 mcg/dose powder for inhalatio n INHALE 1 PUFF BY MOUTH EVERY 12 HOURS active Not Available Not Available No t Available amlodipin e 5 mg tablet TAKE 1 TABLET BY MOUTH DAILY active Not Available Not Available No t Available meloxicam 7.5 mg tablet take 2 tablet by oral route every day 08/25 completed Prescrib ed Elsewher e: Yes Loca tion: [facility] M odify By: cindy E ncounter DateTime : 07/19/19 17 11:30:00 AM Not Available Not Available Not Available gabapenti n 300 mg capsule TAKE 1 CAPSULE BY MOUTH THREE TIMES DAILY 10/11 completed Not Available Not Available Not Available albuterol sulfate HFA 90 mcg/actua tion aerosol inhaler INHALE 1 PUFF BY MOUTH EVERY 4 HOURS NEEDED FOR SHORTNES S OF BREATH OR WHEEZING active Not Available Not Available No t Available Vitamin D2 1,250 mcg (50,000 unit) capsule take 1 capsule by oral route every week 08/25 completed Prescrib ed Elsewher e: No Locat ion: [facility] odify By: josefa salas DateTime : 06/18/19 03:30:32 PM Not Available Not Available Not Available ketoconaz ole 2 % topical cream APPLY TOPICALL Y TO THE AFFECTED AREA EVERY DAY 10/11 completed Not Available Not Available Not Available fluticaso ne propionat e 50 mcg/actua tion nasal spray,ray[employer] pension SHAKE LIQUID AND USE 2 SPRAYS IN EACH NOSTRIL DAILY 08/25 completed Not Available Not Available Not Available lisinopri l 2.5 mg tablet take 1 tablet by oral route every day 08/25 completed Prescrib ed Elsewher e: Yes Loca tion: [facility] odify By: sushma brasher DateTime : 07/27/19 09:00:00 AM Not Available Not Available Not Available Vitals Date Recorded Body height Body mass index (BMI) Body weight Systolic And Diastolic Provider Name and Address Organization Details Last Updated DateTime 05/11/2024 162.56 cm 28.5 kg/m2 79331.33 g 143/74 mm[Hg] FELICITA Regalado [facility] 05/11/2024 11:26:40 Date Recorded Body height Body mass index (BMI) Body weight Systolic And Diastolic Provider Name and Address Organization Details Last Updated DateTime 08/25/2021 162.56 cm 29.1 kg/m2 14010.27 g 130/70 mm[Hg] Nadira Hernandez [facility] 08/25/2021 12:33:44 Date Recorded Body height Body mass index (BMI) Body weight Systolic And Diastolic Provider Name and Address Organization Details Last Updated DateTime 10/11/2022 162.56 cm 29.4 kg/m2 04696.3 g 126/65 mm[Hg] Alia Iraheta [facility] 10/11/2022 11:01:23 Social History Question Answer Notes LastModified by Organizat ion Details LastModified Time Tobacco Smoking Status Current Every Day Smoker Nadira Hernandez [facility] 08/25/2021 12:43:18 Are You Blind Or Do You Have Difficulty Seeing? No Information not available 08/25/2021 What Is Your Level Of Caffeine Consumption? Occasional Information not available 08/25/2021 In The 14 Days Before Symptom Onset, Have You Had Close Contact With A Laboratory-confir med COVID-19 While That Case Was Ill? No Information not available 10/11/2022 In The 14 Days Before Symptom Onset, Have You Had Close Contact With A Person Who Is Under Investigation For COVID-19 While That Person Was Ill? No Information not available 10/11/2022 Have You Been To An Area Known To Be High Risk For COVID-19? No Information not available 10/11/2022 Are You Deaf Or Do You Have Serious Difficulty Hearing? No Information not available 08/25/2021 What Type Of Diet Are You Following? REGULAR Information not available 08/25/2021 Are There Any Guns Present In Your Home? No [email or web address] Information not available 05/11/2024 Do You Use Your Seat Belt Or Car Seat Routinely? Yes Information not available 08/25/2021 Are You Sexually Active? Yes [email or web address] Information not available 05/11/2024 Do You Have Smoke And Carbon Monoxide Detectors In Your Home? Yes Information not available 08/25/2021 Do You Use Sunscreen Routinely? Yes Information not available 08/25/2021 Do You Have Difficulty Walking Or Climbing Stairs? No Information not available 08/25/2021 Sex: Unknown Functional Status Question Answer Note LastModified by Organizat ion Details LastModified Time Do you use any illicit or recreational drugs? No Information not available 08/25/2021 What is your level of alcohol consumption? Occasional Information not available 08/25/2021 Are you currently employed? No [email or web address] Information not available 05/11/2024 Are you able to walk independently without assistance or assistive devices? [email or web address] Information not available 08/25/2021 Are you able to care for yourself independently? Yes Information not available 08/25/2021 Do you have difficulty dressing, bathing, grooming, or toileting? No Information not available 08/25/2021 What is your exercise level? Occasional Information not available 08/25/2021 Mental Status Question Answer Note LastModified by Organization D etails LastModified Time Do you feel stressed (tense, restless, nervous, or anxious, or unable to sleep at night)? [id number] Information not available 08/25/2021 Family History Relationship Description Onset Age of this Age Resolved Age Notes LastModified by Organization Details LastModified Time Brother Diabetes mellitus Not available 2021 12:39:12 Brother Hypertensive disorder Not available 2021 12:39:20 Father Diabetes mellitus Not available 2021 12:39:28 Father Hypertensive disorder Not available 2021 12:41:27 Maternal Aunt Diabetes mellitus Not available 2021 12:39:32 Maternal Aunt Hypertensive disorder Not available 2021 12:41:31 Maternal Grandfather Diabetes mellitus Not available 2021 12:39:40 Maternal Grandfather Hypertensive disorder Not available 2021 12:41:36 Maternal Grandmother Diabetes mellitus Not available 2021 12:39:45 Maternal Grandmother Hypertensive disorder Not available 2021 12:41:41 Maternal Uncle Diabetes mellitus Not available 2021 12:39:51 Maternal Uncle Hypertensive disorder Not available 2021 12:41:48 Mother Diabetes mellitus Not available 2021 12:39:57 Mother Hypertensive disorder Not available 2021 12:41:53 Paternal Aunt Diabetes mellitus Not available 2021 12:40:46 Paternal Aunt Hypertensive disorder Not available 2021 12:42:15 Paternal Grandfather Diabetes mellitus Not available 2021 12:40:53 Paternal Grandfather Hypertensive disorder Not available 2021 12:42:23 Paternal Grandmother Diabetes mellitus Not available 2021 12:40:57 Paternal Grandmother Hypertensive disorder Not available 2021 12:42:28 Paternal Uncle Diabetes mellitus Not available 2021 12:41:03 Paternal Uncle Hypertensive disorder Not available 2021 12:42:33 Sister Diabetes mellitus Not available 2021 12:41:09 Sister Hypertensive disorder Not available 2021 12:42:36 Medical History Condition Response Allergies (Food, seasonal, environmental ) N Other N Breast Cancer N Drug/Latex Allergies/Reactions N Blood Transfusion N Dermatologic Disorders N Lung Disease Y Defects or Inherited Disease N Breast Problem N Gestational Diabetes N Hematologic disorders N Anesthesia Complications N History of STI N Deep Vein Thrombosis N Polycystic ovary syndrome N Anxiety Disorder N Autoimmune disease N Arthritis N Infertility N Polyps N Acid Reflux (GERD) N History of abnormal pap N Cancer N Stroke N Varicosities N Neurologic/Epilepsy N Endometriosis N High Cholesterol N Headaches N Fibromyalgia N Kidney Disease N Heart Problems N Kidney or Bladder Problems N Thyroid Problems N GI Problems N Eating Disorder N Anemia N Art (IVF or FET) N Psychiatric Illness N Ovarian Cancer N Diabetes N Pulmonary (TB, Asthma) N Hepatitis/Liver Disease N No Past Medical History N Eczema N Urinary Tract Infection N Abuse/Domestic Violence N Asthma N Trauma/Violence N Depression/ depression N Heart Disease N Pre-Eclampsia N Hypertension Y Osteoporosis N Thrombophilias N Gynecological History Statement/Question Response Abnormal Pap Y Date of Last Colonoscopy Most Recent Bone Density Sexually Active? N STIs/STDs Yes Menses Monthly N HPV Vaccine N Date of Last Pap Smear 08/25/2021 Sexual Problems? N Current Control Method Menopause LMP Unknown Obstetrics History GPAL:G 3 P 0 0 0 3 Type Value Living 3 Total 3 Past Encounters Encounter ID Performer Location Encounter Start Date Encounter Closed Date Diagnosis/Indication Diagnosis SNOMED-CT Code Diagnosis ICD10 Code Diagnosis IMO Codes Diagnosis Note [id number] [facility] [address] [address] 08/25/2021 12:03:54 08/25/2021 13:46:29 Gynecologic examination [id number] Z01.419 Take Calcium with Vitamin D 12-1500mg daily. Do monthly self breast exams. It is advised to get annual flu shot in the fall and she could obtain at [facility]. If you haven't received the Tdap vaccine in the last 10 years you should obtain one as well. Have mammogram yearly, bone density every 2-3 years and colonoscop y every 5-10 years depending on findings and history. Engage in daily exercise of low impact aerobic exercise 45-60 minutes 4-5 times weekly. Avoid tobacco and illicit drugs as well as using moderation with alcohol intake less than 1-2 8 oz beverages daily. This lifestyle behavior pattern will lead to less health conditions and longer life span. If BMI greater than 25 weight watchers or dietary consult advised. Questions have been answered. Patient appears to understand instructio ns, but if you have any further questions call or respond to this email Pap/hpv sentSTD Screen serum/adde d to pap orderedGen etic Screen discussedC olon Screen UTD PCPDexa Screen OrderedRou peter Labs UTD PCPMammo ordered Sexually t ransmitted infectious disease [id number] A64 Postmenopausal state [id number] Z78.0 [id number] Brooke Coon , [facility] [address] [address] 10/11/2022 10:52:06 10/11/2022 11:16:28 Gynecologic examination [id number] Z11.51 Z11.3 Z11.8 Take Calcium with Vitamin D 12-1500mg daily. Do monthly self breast exams. It is advised to get annual flu shot in the fall and she could obtain at [facility] or [facility]. If you haven't received the Tdap vaccine in the last 10 years you should obtain one as well. Have mammogram yearly, bone density every 2-3 years and colonoscop y every 5-10 years depending on findings and history. Engage in daily exercise of low impact aerobic exercise 45-60 minutes 4-5 times weekly. Avoid tobacco and illicit drugs as well as using moderation with alcohol intake less than 1-2 8 oz beverages daily. This lifestyle behavior pattern will lead to less health conditions and longer life span. If BMI greater than 25 weight watchers or dietary consult advised. Questions have been answered. Patient appears to understand instructio ns, but if you have any further questions call or respond to this email Pap/hpv due age 64yo unless otherwise indicated. STD Screen declinedGe netic Screen discussedC olon Screen UTD PCPDexa Screen UTD PCPRoutine Labs UTD PCPMammo ordered Screening mammography 24 [id number] Z12.31 [id number] Bren Larryjuan aMAILE [place] [address] [address] 05/11/2024 11:16:18 05/11/2024 12:28:48 Gynecologic examination [id number] Z01.419 WWEpostmen opausalPap - UTD/not indicated today per asccp guidelines STI screen - HIV/Hep B&C/Syphil is testing ordered per pt requestMam mogram - order givenColon cancer screening - UTDDexa - order givenRouti ne labs - UTD/PCPBP precaution s discussed, encouraged PCP f/uRTC in 1 yr or sooner if needed Do monthly self breast exams.It is advised to get annual flu shot in the fall and she could obtain at local pharmacy. If you haven't received the Tdap vaccine in the last 10 years you should obtain one as well.Have mammogram yearly, bone density every 2-3 years and stay up to date on colon cancer screening. Engage in regular exercise. Avoid tobacco and illicit drugs. This lifestyle behavior pattern will lead to less health conditions and longer life span. If BMI greater than 25 dietary consult advised.Qu estions have been answered. Breast lump [id number] N63 .0 order for bilateral diagnostic mammogram with left breast u/s Venereal d isease screening [id number] Z11.3 Sexually t ransmitted infectious disease [id number] A64 Health Concerns Section Related Observation LastModified by Organization Detai ls LastModified Time None Recorded Concern Status LastModified by Organization Details LastModified Time None Recorded Advance Directives Directive None Recorded Payers Insurance Date Sequence Insurance Name Policy Number Policy Miguel Covered Member ID Miguel Member ID Guarantor Name 05/11/2024 1 [facility] - DOS ON OR AFTER 20 (MEDICAID REPLACEMENT - HMO) Kimberley Marie [id number] Kimberley Marie Notes Date Note Type Note Provider Name and Address Organization Details Recorded Time 2 text/html Annual Clock Smith Post-MenopausalReported by PatientGenitourinary symptomsFor menopausal symptoms, patient reportsno menopausal symptomsandnormal vaginal lubrication. For vaginal bleeding, patient reportshistory of menopause having occurredandno history of post menopausal bleeding. For urinary symptoms, patient reportsno hematuria,no incontinence,no nocturia, andno urinary frequency. For vulva, patient reportsno genital lesionandno vulvar atrophy. For vagina, patient reportsnormal vaginal dischargeandno vaginal atrophy.Breast symptomsFor breast, patient reportsno breast lump,no nipple discharge, andno breast pain.Psychological symptomsFor sexual complaints, patient reportsno sexual complaints. For psychological symptoms, patient reportsno depressionandno anxiety.Preventative measuresFor preventive measures, patient reportsencourage regular mammograms starting age 40,encourage self breast examination,encourage regular exercise,encourage no tobacco use,needs to schedule mammogram,history of recent colonoscopy, andneeds to schedule bone density. [facility] [address], [place], [address], [facility] 08/25/2021 13:04:58 3 text/html Annual Clock Smith Post-MenopausalReported by PatientGenitourinary symptomsFor menopausal symptoms, patient reportsno menopausal symptomsandnormal vaginal lubrication. For vaginal bleeding, patient reportshistory of menopause having occurredandno history of post menopausal bleeding. For urinary symptoms, patient reportsno hematuria,no incontinence,no nocturia, andno urinary frequency. For vulva, patient reportsno genital lesionandno vulvar atrophy. For vagina, patient reportsnormal vaginal dischargeandno vaginal atrophy.Breast symptomsFor breast, patient reportsno breast lump,no nipple discharge, andno breast pain.Psychological symptomsFor sexual complaints, patient reportsno sexual complaints. For psychological symptoms, patient reportsno depressionandno anxiety.Preventative measuresFor preventive measures, patient reportsencourage regular mammograms starting age 40,encourage self breast examination,encourage regular exercise,encourage no tobacco use,needs to schedule mammogram, andhistory of recent colonoscopy. Brooke Coon JARED- [address], [place], [address], [facility] 10/11/2022 11:16:18 5 text/html Annual Clock Smith Post-MenopausalReported by PatientGenitourinary symptomsFor menopausal symptoms, patient reportsno menopausal symptomsandnormal vaginal lubrication. For vaginal bleeding, patient reportshistory of menopause having occurredandno history of post menopausal bleeding. For urinary symptoms, patient reportsno hematuria,no incontinence,no nocturia, andno urinary frequency. For vulva, patient reportsno genital lesionandno vulvar atrophy. For vagina, patient reportsnormal vaginal dischargeandno vaginal atrophy.Breast symptomsFor breast, patient reportsno breast lump,no nipple discharge, andno breast pain.Psychological symptomsFor sexual complaints, patient reportsno sexual complaints. 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 Mechanic Status 08/26/19 22 1 CLOSED Fetus Data First Name Last Name Admitted to NICU Weight (g) Sex Living Outcome Pediatric Complications Fetus ID Race Codes Race Delivery Type [id number] Vaginal Delivery Erich Calculation Initial Erich Date Initial Exam Date Initial Exam Provider Initial Ultrasound Date Last Menstrual Period Date Ultra Sound Weeks Gestation 0 Eighteen To Twenty Week Erich Update Ultra Sound Date Fundal Height At Umbil Quickening Date Ultra Sound Latest Weeks Gestation Final Erich Confirmed By Final Erich Confirmed Date Final Erich Date Ultra Sound Latest Days Gestation 0 0 Menstrual History Last Menstrual Date Menses Monthly On Bcp Conception Prior Menses Frequency Hcg Plus Date Menarche Onset Age Delivery Information Delivery Date Delivery Type Labor Anesthesia Weeks Gestation Incision Type Labor Labor Length Hrs Delivered By Post Complications Tubal Sterilization Discharge Date Comments 5 Discharge Information Feeding Method Contraceptive Method Maternal HG B and HCT Levels Ob Episode Information Episode Created Date Number of Fetuses Patient Bloodtype Patient rh Status Prepregnancy Weight lbs Domestic Partner Domestic Partner Phone Father Name Experimental Rocketsled Mechanic Status 08/26/19 22 1 CLOSED Fetus Data First Name Last Name Admitted to NICU Weight (g) Sex Living Outcome Pediatric Complications Fetus ID Race Codes Race Delivery Type M [id number] Vaginal Delivery Erich Calculation Initial Erich Date Initial Exam Date Initial Exam Provider Initial Ultrasound Date Last Menstrual Period Date Ultra Sound Weeks Gestation 0 Eighteen To Twenty Week Erich Update Ultra Sound Date Fundal Height At Umbil Quickening Date Ultra Sound Latest Weeks Gestation Final Erich Confirmed By Final Erich Confirmed Date Final Erich Date Ultra Sound Latest Days Gestation 0 0 Menstrual History Last Menstrual Date Menses Monthly On Bcp Conception Prior Menses Frequency Hcg Plus Date Menarche Onset Age Delivery Information Delivery Date Delivery Type Labor Anesthesia Weeks Gestation Incision Type Labor Labor Length Hrs Delivered By Post Complications Tubal Sterilization Discharge Date Comments 0 Discharge Information Feeding Method Contraceptive Method Maternal HG B and HCT Levels Ob Episode Information Episode Created Date Number of Fetuses Patient Bloodtype Patient rh Status Prepregnancy Weight lbs Domestic Partner Domestic Partner Phone Father Name Experimental Rocketsled Mechanic Status 08/26/19 22 1 CLOSED Fetus Data First Name Last Name Admitted to NICU Weight (g) Sex Living Outcome Pediatric Complications Fetus ID Race Codes Race Delivery Type [id number] Vaginal Delivery Erich Calculation Initial Erich Date Initial Exam Date Initial Exam Provider Initial Ultrasound Date Last Menstrual Period Date Ultra Sound Weeks Gestation 0 Eighteen To Twenty Week Erich Update Ultra Sound Date Fundal Height At Umbil Quickening Date Ultra Sound Latest Weeks Gestation Final Erich Confirmed By Final Erich Confirmed Date Final Erich Date Ultra Sound Latest Days Gestation 0 0 Menstrual History Last Menstrual Date Menses Monthly On Bcp Conception Prior Menses Frequency Hcg Plus Date Menarche Onset Age Delivery Information Delivery Date Delivery Type Labor Anesthesia Weeks Gestation Incision Type Labor Labor Length Hrs Delivered By Post Complications Tubal Sterilization Discharge Date Comments 7 Discharge Information Feeding Method Contraceptive Method Maternal HG B and HCT Levels
--- NOTE | 2025-03-26 08:50 | ECHO_ITS ---
Patient Info Name: Kimberley Marie Age: 64 years : 1960 Gender: Female Ht: 65 in Wt: 154 lbs BSA: 1.80 m2 HR: 60 bpm BP: 136 / 58 mmHg Heart Rhythm: Sinus Rhythm Technical Quality: Good Exam Date: 03/26/2025 8:53 AM Patient Status: O Admit Date: 03/26/2025 Exam Type: CA echo doppler color flow Complete two-dimensional, color flow and Doppler transthoracic echocardiogram is performed. Director Banking: Ashley Ramos Attending Provider: Rebecca Blount Summary 1. Complete two-dimensional, color flow and Doppler transthoracic echocardiogram is performed. 2. Left ventricular chamber dimension is normal. 3. Left ventricular systolic function is normal, estimated at 65-70. 4. The left ventricular diastolic function is grade I diastolic dysfunction. 5. E/e' 12 is mildly elevated. 6. Left atrial chamber dimension is moderately enlarged. 7. The aortic valve is bicuspid. 8. There is moderate aortic valve sclerosis. 9. There is mild aortic valve stenosis with a peak velocity of 298 cm/s, mean gradient of 18 mmHg, and aortic valve area of 1.6 cm2. 10. There is mild aortic valve regurgitation. 11. There is trace mitral valve regurgitation. 12. There is mild tricuspid valve regurgitation. 13. No pulmonary hypertension, estimated pulmonary arterial systolic pressure is 30 mmHg. 14. There is trace pulmonic regurgitation. Left Ventricle E/e' 12 is mildly elevated. Left ventricular chamber dimension is normal. Left ventricular systolic function is normal, estimated at 65-70. The left ventricular diastolic function is grade I diastolic dysfunction. Right Ventricle Right ventricular chamber dimension is normal. Right ventricular systolic function is normal and with normal TAPSE 2.7 cm. Left Atria Left atrial chamber dimension is moderately enlarged. Right Atria Right atrial chamber dimension is normal. Aortic Valve The aortic valve is bicuspid. There is moderate aortic valve sclerosis. There is mild aortic valve stenosis with a peak velocity of 298 cm/s, mean gradient of 18 mmHg, and aortic valve area of 1.6 cm2. There is mild aortic valve regurgitation. Pulmonic Valve There is trace pulmonic regurgitation. Mitral Valve There is no mitral valve stenosis. There is trace mitral valve regurgitation. Tricuspid Valve There is mild tricuspid valve regurgitation. No pulmonary hypertension, estimated pulmonary arterial systolic pressure is 30 mmHg. Pericardium/Pleural There is no pericardial effusion. Inferior Vena Cava Normal inferior vena cava with >50% collapse upon inspiration consistent with normal right atrial pressure, 5 mmHg. Aorta The aortic root size at the sinus of Valsalva is normal. Left Ventricular Outflow Tract Name Value Normal LVOT 2D LVOT Diameter 2.0 cm LVOT Doppler LVOT Peak Velocity 139 cm/s LVOT Peak Gradient 8 mmHg LVOT Mean Gradient 4 mmHg LVOT VTI 32 cm LVOT VTI/AV VTI Ratio 0.5 LVOT Stroke Volume 103 ml LVOT CO 6.4 l/min LVOT CI 3.5 l/min/m2 Pulmonic Valve Name Value Normal RVOT Doppler RVOT Peak Velocity 94 cm/s RVOT Peak Gradient 4 mmHg PV Doppler PV Peak Velocity 114 cm/s PV Peak Gradient 5 mmHg Mitral Valve Name Value Normal MV Diastolic Function MV E Peak Velocity 86 cm/s MV A Peak Velocity 134 cm/s MV E/A 0.6 MV Decel Time (PW) 269 ms MV Annular TDI MV E/e' (Septal) 13.7 MV E/e' (Lateral) 10.9 MV E/e' (Average) 12.3 Tricuspid Valve Name Value Normal TV Regurgitation Doppler TR Peak Velocity 249 cm/s TR Peak Gradient 25 mmHg Estimated PAP/RSVP RA Pressure 5 mmHg <=5 PA Systolic Pressure 30 mmHg <36 RV Systolic Pressure 30 mmHg <36 TV Annular TDI TV Lateral Darshana s' Velocity 17.7 cm/s >=9.5 Aorta Name Value Normal Ascending Aorta Ao Root Diameter (MM) 2.7 cm Ao Root Diam Index (MM) 1.5 cm/m2 Aortic Valve Name Value Normal AV Doppler AV Peak Velocity 298 cm/s AV Peak Gradient 36 mmHg AV Mean Gradient 18 mmHg AV VTI 63 cm AV Area (Cont Eq VTI) 1.6 cm2 >=3.0 AV Area (Cont Eq Lux) 1.5 cm2 AV DI (Lux) 0.47 AV Regurgitation 2D LVOT Area 3.3 cm2 Ventricles Name Value Normal LV Dimensions 2D/MM IVS Diastolic Thickness (2D) 0.9 cm 0.6-1.0 LVID Diastole (2D) 5.3 cm 3.8-5.2 LVIW Diastolic Thickness (2D) 0.9 cm 0.6-0.9 LVID Systole (2D) 3.0 cm 2.2-3.5 LVOT Diameter 2.0 cm LV Mass (2D Cubed) 167.48 g 67.00-162.00 LV Mass Index (2D Cubed) 93 g/m2 43-95 Relative Wall Thickness (2D) 0.32 <=0.42 LV Fractional Shortening/Ejection Fraction 2D/MM LV Fractional Shortening (2D) 42 % 27-45 LV EF (2D Teichholz) 73 % LV Diastolic Volume (4C MOD) 98 ml LV EF (4C MOD) 68 % LV Diastolic Volume (2C MOD) 94 ml LV EF (2C MOD) 69 % LV Diastolic Volume (BP MOD) 96 ml 46-106 LV Diastolic Volume Index (BP MOD) 53 ml/m2 29-61 LV Systolic Volume (BP MOD) 31 ml 14-42 LV Systolic Volume Index (BP MOD) 17 ml/m2 8-24 LV EF (BP MOD) 67 % 54-74 LV Diastolic Length (4C) 8.2 cm LV Systolic Length (4C) 6.0 cm LV Stroke Volume (4C MOD) 67 ml Atria Name Value Normal LA Dimensions LA Dimension (MM) 4.0 cm 2.7-3.8 LA Volume (4C A-L) 73 ml LA Volume (BP A-L) 78 ml RA Dimensions RA Area (4C) 16.4 cm2 <=18.0 Report Signatures
== END 2025-03-26 08:27 | disposition home or self-care (01) ==
PROVIDERS: PCP Nurse Practitioner; Visit Provider Nurse Practitioner
DX: I35.1 Nonrheumatic aortic (valve) insufficiency (principal); I34.0 Nonrheumatic mitral (valve) insufficiency; I36.1 Nonrheumatic tricuspid (valve) insufficiency
CPT/HCPCS: 93306

== ENCOUNTER 2025-03-26 08:28 | Outpatient (CLI) | payer MEDICARE, MEDICAID, SELFPAY ==
--- NOTE | ~2025-03-26 | CT_ITS ---
EXAMINATION:CT lung screening DATE: 03/26/2025 10:07 INDICATION: Screening TECHNIQUE: Computed tomography (CT) of the chest was performed without intravenous contrast. The dose-length product (DLP) was 84.74 mGy-cm. COMPARISON: September 28, 2019 FINDINGS: 2 mm subpleural right upper lobe nodule image 32 series 4. No other nodules seen. No gross acute intrathoracic process; heart and great vessels appear stable. No acute process seen in the visualized portions of the upper abdomen bony thorax or extrathoracic soft tissues. IMPRESSION: No radiographically suspicious nodules. Lung RADS 2. Correlate with follow-up low-dose lung cancer screening chest CT in 12 months. Reviewed, dictated and finalized at location A. [employer] LEGAL SECRETARY SPECIALIST IMPRESSION: No radiographically suspicious nodules. Lung RADS 2. Correlate wi th follow-up low-dose lung cancer screening chest CT in 12 months.
== END 2025-03-26 08:29 | disposition home or self-care (01) ==
PROVIDERS: PCP Nurse Practitioner; Visit Provider Nurse Practitioner
DX: Z12.2 Encounter for screening for malignant neoplasm of respiratory organs (principal); Z87.891 Personal history of nicotine dependence
CPT/HCPCS: 71271